=== PATIENT | female | born 2000 | race Caucasian/White ===

== ENCOUNTER → 2021-12-21 | Outpatient (CLI) | payer BC, OTHER ==
--- NOTE | 2021-12-21 15:28 | Diagnostic Imaging Report ---
Indication: Chest pain Portable chest 2:20 PM Heart size and pulmonary vascularity are normal. Lungs are clear. There are no effusions or pneumothoraces. IMPRESSION: No acute abnormalities in the chest Dictated by: Dictated on workstation # [id number]
== END ==
LOC: RAD 13:46
PROVIDERS: ATTEND Nurse Practitioner Primary Care
DX: R07.9 Chest pain, unspecified (principal)
CPT/HCPCS: 71045